=== PATIENT | male | born 1965 | race Two or more races ===

== ENCOUNTER → 2021-12-01 | Outpatient (CLI) | payer OTHER | LOC: M WHC 11:01 | PROVIDERS: ATTEND Surgery | DX: R59.0 Localized enlarged lymph nodes (principal) ==

== ENCOUNTER → 2022-01-22 | Outpatient (CLI) | payer OTHER ==
[~2022-01-22] MED LIST: ISOVUE-370 76% 100ML VIAL As Ordered ONE
== END ==
LOC: M RAD 08:46
PROVIDERS: ATTEND Physician Assistant
DX: R59.0 Localized enlarged lymph nodes (principal)
CPT/HCPCS: 70491; Q9967

== ENCOUNTER → 2022-02-28 | Outpatient (CLI) | payer OTHER ==
[~2022-02-28] MED LIST changes: -ISOVUE-370 76% 100ML VIAL As Ordered ONE; +LIDOCAINE 1% MDV 20ML VIAL As Ordered ONE
[2022-02-28 13:20] VITALS: BP 144/77
== END ==
LOC: M IRPRO 12:21
PROVIDERS: ATTEND Otolaryngology
DX: C77.0 Secondary and unspecified malignant neoplasm of lymph nodes of head, face and neck (principal)

== ENCOUNTER → 2022-03-26 | Outpatient (CLI) | payer OTHER | LOC: M PLARAD 13:32 | PROVIDERS: ATTEND Otolaryngology | DX: C49.0 Malignant neoplasm of connective and soft tissue of head, face and neck (principal); R93.3 Abnormal findings on diagnostic imaging of other parts of digestive tract | CPT/HCPCS: 78815; A9552 ==

== ENCOUNTER → 2022-11-05 | Outpatient (CLI) | payer OTHER | LOC: M PLARAD 09:50 | PROVIDERS: ATTEND Student in an Organized Health Care Education/Training Program | DX: C01 Malignant neoplasm of base of tongue (principal); K57.30 Diverticulosis of large intestine without perforation or abscess without bleeding | CPT/HCPCS: 78815; A9552 ==